=== PATIENT | male | born 1970 | race Caucasian/White ===

== ENCOUNTER 2018-09-03 16:14 | Emergency (ER) | payer BC ==
[~2018-09-03] VITALS: Ht 177.8 cm; Wt 99.8 kg
[2018-09-03] MEDS ORDERED: LISINOPRIL20 MG PO (18:48)
[2018-09-03] MEDS ORDERED: ASPIRIN81 MG PO (18:49)
== END 2018-09-03 21:17 | disposition home or self-care (01) ==
LOC: ED 16:14
DX: S01.81XA Laceration without foreign body of other part of head, initial encounter (principal); S16.1XXA Strain of muscle, fascia and tendon at neck level, initial encounter; W01.0XXA Fall on same level from slipping, tripping and stumbling without subsequent striking against object, initial encounter; I10 Essential (primary) hypertension; F17.200 Nicotine dependence, unspecified, uncomplicated; Z79.82 Long term (current) use of aspirin; Z79.899 Other long term (current) drug therapy
CPT/HCPCS: 12013; 72040; 90471; 90715; 99283-25